=== PATIENT | male | born 1935 | race Caucasian/White ===

== ENCOUNTER 2024-03-14 00:10 | Inpatient (IN) | payer OTHER ==
[2024-03-14] VITALS (33 sets, daily range): BP systolic 86–197; BP diastolic 55–155; TEMP 97.5–98.8; O2SAT 96–99
[~2024-03-14] VITALS: Ht 170.2 cm; Wt 63.5 kg
[2024-03-14] MEDS ORDERED: ONDANSETRON HCL/PF 4 MG/2 ML VIAL IVP PRN (00:30)
[2024-03-14] MEDS ORDERED: ACETAMINOPHEN 325 MG TABLET PO PRN (00:30)
[2024-03-14] MEDS ORDERED: MORPHINE SULFATE INJ 2 MG/ML DISP.SYRIN IV PRN (00:30)
[2024-03-14] MEDS ORDERED: ENOXAPARIN SODIUM 60 MG/0.6 ML DISP.SYRIN SQ SCH (02:00)
[2024-03-14] MEDS: hydrALAZINE HCL IV 20 MG VIAL IV PRN (03:00)
[2024-03-14 06:51] LABS: BASOPHILS # (AUTO) 0.1 K/uL (0.0-0.2); BASOPHILS % (AUTO) 0.8 % (0.0-2.0); EOSINOPHILS # (AUTO) 0.2 K/uL (0.0-0.7); EOSINOPHILS % (AUTO) 2.9 % (0.0-6.0); HEMATOCRIT 40 % (39-51); HEMOGLOBIN 13.7 g/dL (13.5-17.5); LYMPHOCYTES # (AUTO) 0.9 K/uL (0.8-4.8); LYMPHOCYTES % (AUTO) 14.4 % (20.0-44.0); MEAN CORPUSCULAR HEMOGLOBIN 31 PG (26.0-33.0); MEAN CORPUSCULAR HGB CONC 34 g/dl (31.0-36.0); MEAN CORPUSCULAR VOLUME 92 fL (80-96); MONOCYTES # (AUTO) 0.4 K/uL (0.1-1.30); MONOCYTES % (AUTO) 5.7 % (2.0-12.0); NEUTROPHILS # (AUTO) 4.9 K/uL (1.8-8.9); NEUTROPHILS % (AUTO) 76.2 % (43.0-81.0); PLATELET COUNT (AUTO) 143 K/uL (150-450); RED BLOOD CELL COUNT(AUTO) 4.39 MIL/uL (4.5-6.0); RED CELL DISTRIBUTION WIDTH 15.5 % (11.5-15.0); WHITE BLOOD COUNT (AUTO) 6.4 K/uL (4.3-11.0)
[2024-03-14 06:53] LABS: ALANINE AMINOTRANSFERASE 6 U/L (12-78); ALBUMIN 2.7 g/dL (3.4-5.0); ALKALINE PHOSPHATASE 75 U/L (46-116); ASPARTATE AMINOTRANSFERASE 27 U/L (15-37); BILIRUBIN,TOTAL 0.9 mg/dL (0.2-1.0); CALCIUM, SERUM 9.4 mg/dL (8.5-10.1); CARBON DIOXIDE 25 mmol/L (21-32); CHLORIDE 107 mmol/L (98-107); CREATININE 0.8 mg/dL (0.6-1.3); GLUCOSE 149 mg/dL (74-106); POTASSIUM 3.4 mmol/L (3.5-5.1); SODIUM SERUM 142 mmol/L (136-145); TOTAL PROTEIN, SERUM 6.6 g/dL (6.4-8.2); UREA NITROGEN, BLOOD 10 mg/dL (7-18)
[2024-03-14 06:58] LABS: INR 0.97 (0.91-1.10); PROTHROMBIN TIME 10.3 SECS (9.2-11.1)
[2024-03-14 09:33] LABS: THYROID STIMULATING HORMONE 2.69 uIU/mL (0.358-3.74)
[2024-03-14] MEDS: ATORVASTATIN 10 MG TABLET PO SCH (09:36)
[2024-03-14] MEDS: ASPIRIN 81 MG TAB.CHEW PO SCH (09:36)
[2024-03-14] MEDS: VALSARTAN 80 MG TABLET PO SCH (09:37)
[2024-03-14 09:57] LABS: MAGNESIUM 2.4 mg/dL (1.8-2.4); PHOSPHORUS 2.5 mg/dL (2.5-4.9)
[2024-03-14] MEDS: ENOXAPARIN SODIUM 60 MG/0.6 ML DISP.SYRIN SQ SCH (10:00)
[2024-03-14] MEDS: POTASSIUM CHLORIDE 20 MEQ TAB.PRT.SR PO SCH (10:03)
[2024-03-14] MEDS ORDERED: IV SET PRIMARY PUMP SET 1 EA INFUS.SET MC ONE (11:34)
[2024-03-14] MEDS ORDERED: IV NS 0.9% 1,000 ML ONE (11:34)
[2024-03-14] MEDS ORDERED: IODIXANOL 150 ML IV ONE ×2 (11:34→12:25)
[2024-03-14] MEDS ORDERED: LIDOCAINE 1% INJ 50 ML MDV IJ ONE (11:43)
[2024-03-14] MEDS ORDERED: MIDAZOLAM HCL 2 MG/2ML VIAL ONE (11:55)
[2024-03-14] MEDS ORDERED: FENTANYL PF 100MCG/2ML AMPUL ONE (11:55)
[2024-03-14] MEDS ORDERED: NICARDIPINE HCL 25 MG/10 ML VIAL IV ONE ×2 (12:02→13:01)
[2024-03-14] MEDS ORDERED: IODIXANOL 320MG/ML 50 ML IV ONE (12:13)
[2024-03-14] MEDS ORDERED: HEPARIN SODIUM, PORCINE 5000 UNITS/1 ML VIAL ONE (12:14)
[2024-03-14] MEDS ORDERED: IV NS 0.9% 500 ML IV ONE (12:18)
[2024-03-14] MEDS ORDERED: hydrALAZINE HCL IV 20 MG VIAL ONE (12:41)
[2024-03-14] MEDS ORDERED: HEPARIN SODIUM, PORCINE 1,000 UNIT/ML VIAL ONE (12:45)
[2024-03-14] MEDS ORDERED: TICAGRELOR 90 MG TABLET ONE (12:49)
[2024-03-14] MEDS: FLUTICASONE PROPIONATE 16 GM BOTTLE NS SCH (16:23)
[2024-03-14] MEDS: TICAGRELOR 90 MG TABLET PO SCH (17:29)
[2024-03-14] MEDS: DILTIAZEM HCL 25 MG IV IV ONE (19:30)
[2024-03-14] MEDS: LORAZEPAM 0.5 MG TABLET PO PRN (20:33)
[2024-03-14] MEDS ORDERED: AMIODARONE 450 MG in IV D5W 241 ML IV PRN (21:00)
[2024-03-14] MEDS: AMIODARONE 150 MG in IV D5W 100 ML IV ONE (21:00)
== END 2024-03-14 22:50 | disposition short-term general hospital (02) | DRG 321 ==
LOC: TELE1 00:10 → ICU 13:46
PROVIDERS: ADMIT Internal Medicine; ATTEND Internal Medicine
PROC: 4A023N7 Measurement of Cardiac Sampling and Pressure, Left Heart, Percutaneous Approach (ICD-10-PCS; principal; 2024-03-14)
PROC: 027034Z Dilation of Coronary Artery, One Artery with Drug-eluting Intraluminal Device, Percutaneous Approach (ICD-10-PCS; 2024-03-14)
PROC: B211YZZ Fluoroscopy of Multiple Coronary Arteries using Other Contrast (ICD-10-PCS; 2024-03-14)
PROC: B212YZZ Fluoroscopy of Single Coronary Artery Bypass Graft using Other Contrast (ICD-10-PCS; 2024-03-14)
PROC: B215YZZ Fluoroscopy of Left Heart using Other Contrast (ICD-10-PCS; 2024-03-14)
DX: I25.10 Atherosclerotic heart disease of native coronary artery without angina pectoris (principal); E43 Unspecified severe protein-calorie malnutrition; I21.A1 Myocardial infarction type 2; I10 Essential (primary) hypertension; Z95.1 Presence of aortocoronary bypass graft; Z95.3 Presence of xenogenic heart valve; Z79.82 Long term (current) use of aspirin; Z79.01 Long term (current) use of anticoagulants; Z79.899 Other long term (current) drug therapy; Z95.0 Presence of cardiac pacemaker; E11.9 Type 2 diabetes mellitus without complications; E78.5 Hyperlipidemia, unspecified; E87.6 Hypokalemia; E88.09 Other disorders of plasma-protein metabolism, not elsewhere classified
CPT/HCPCS: 36415; 71045-TC; 80053-TC; 80061-TC; 83735-TC; 84100-TC; 84439-TC; 84443-TC; 84484-TC; 85025-TC; 85347; 85610-TC; 93307-TC; A4223; G0378; J0282; J0360; J1644; J2250; J3010; J3490; J7030; J7040; J7060; Q9967